=== PATIENT | female | born 1945 | race African-American/Black ===

== ENCOUNTER 2020-11-02 09:02 | Outpatient (CLI) | payer MEDICARE, OTHER, SELFPAY ==
--- NOTE | ~2020-11-02 | MM_ITS ---
EXAMINATION: MM screening [facility] BI w julien HISTORY: Screening TECHNIQUE: Craniocaudal and mediolateral oblique 3-D tomosynthesis images were obtained and synthetic 2-D images were generated. CAD analysis was submitted and interpreted. COMPARISON: Comparison to multiple prior studies sequentially, with oldest reviewed study dated 02/05. BREAST PARENCHYMAL COMPOSITION: There are scattered areas of fibroglandular density. FINDINGS: There is no evidence of suspicious mass, calcification, or architectural distortion to sugg est malignancy in either breast. There has been no suspicious interval change. IMPRESSION: 1. No mammographic evidence of malignancy. 2. Recommend routine screening mammography in one year. BI-RADS Category 1: Negative Reviewed, dictated and finalized at location A.
--- NOTE | ~2020-11-02 | DEXA_ITS ---
Bone Density Report Name: Amber Doshi Age: 75 Sex: Female Ethnicity: Black Date of : 1945 Indication: postmenopausal; height loss; Referring Provider: Michaela De Luna Study: Bone densitometry was performed. Exam Date: November 02, 2020 Accession number: [id number] Bone Density: Region BMD T-score Z-score Classification AP Spine (L1-L4) 1.152 1.0 2.8 Normal World Health Organization criteria for BMD impression classify patients as: Normal (T-score at or above -1.0), Osteopenia (T-score between -1.0 and -2.5), or Osteoporosis (T-score at or below -2.5). Previous Exams: Region Exam Age BMD T-score BMD Change BMD Change Date g/cm2 vs Baseline vs Previous AP Spine(L1-L4) 11/02/2020 75 1.152 1.0 -0.095(-7.6%)# -0.010(-0.9%) 08/15/2018 73 1.162 1.0 -0.084(-6.8%)# -0.162(-12.2%) 02/23/2011 66 1.323 2.5 0.077(6.2%)* 0.068(5.4%)* 12/22/2006 61 1.256 1.9 0.010(0.8%) 0.010(0.8%) 07/11/2003 58 1.246 1.8 *Denotes significance at 95% confidence level, LSC for AP Spine = 0.022 g/cm2 Clinical Information Provided by Patient: Patient maximum height was 65.5 Menopause Age: 46 No regular weight bearing exercise Onset of menses at age 11 Number of children 4 Impression: The patient has normal bone mass. No significant bone loss was observed. Discussion: LOW RISK OF FRACTURE; BONE DENSITY IS WELL ABOVE THE MINIMUM DESIRABLE LEVEL AND ABOVE AVERAGE FOR AGE AND SEX AT ALL SKELETAL SITES TESTED. This person's bone density is above expected limits for age and sex. This is rarely clinically significant, but should be pursued if there are significant musculoskeletal complaints. The patient should follow a healthful lifestyle (good nutrition with adequate calcium and vitamin D, and appropriate weight-bearing exercise). Follow-Up: Consider repeating this study in 5 years or sooner if there is some new clinical indication. Reported by: ANDREW on 11/02/2020 9:30:00 AM. Reviewed, dictated and finalized at location ANicky [facility]
== END 2020-11-02 09:03 | disposition home or self-care (01) ==
LOC: ANHIMG 09:05
PROVIDERS: PCP Family Medicine; Visit Provider Physician Assistant
DX: Z78.0 Asymptomatic menopausal state (principal); Z12.31 Encounter for screening mammogram for malignant neoplasm of breast
CPT/HCPCS: 77063; 77067; 77080

== ENCOUNTER 2023-04-04 11:04 | Emergency (ER) | payer MEDICARE, OTHER, SELFPAY ==
--- NOTE | ~2023-04-04 | XR_ITS ---
EXAMINATION: [id number] DATE: 04/04/2023 12:09 INDICATION: Left rib pain. TECHNIQUE: A frontal view of the chest and 2 views on 3 radiographs of the left ribs were obtained. COMPARISON: Chest 2 views 11/08/2016 FINDINGS: There is no pneumonia, pleural effusion, or pneumothorax. The heart size is normal. IMPRESSION: 1. No rib fracture. Reviewed, dictated and finalized at location A. ENTER HELPER IMPRESSION: 1. No rib fracture.
[2023-04-04 11:10] VITALS: BP 169/85; PULSE 65; RESP 16; TEMP 36.5; O2SAT 100
--- NOTE | 2023-04-04 11:57 | ED.GENADULT ---
HPI - General Adult General Chief complaint: Back Pain/Injury Stated complaint: BACK/NECK/SHOULDER PAIN Time Seen by Provider: 04/04/23 11:48 Source: patient and RN notes reviewed Mode of arrival: ambulatory Limitations: no limitations History of Present Illness HPI narrative: Patient presents today complaining of left lateral and posterior rib pain, and left neck/shoulder pain x1 week. Denies injury or trauma. She has been taking Tylenol using ice, heat, and Aspercreme without relief. Prior to onset of symptoms, patient had been lifting heavy groceries and objects at home. Denies any urinary symptoms to include dysuria, hematuria, urgency, frequency. No history of kidney stones. No shortness of breath or chest pain. Currently rates her pain 5/10 with occasional sharp pains of 10/10. Related Data Home Medications Medication Instructions Recorded Confirmed loperamide 2 mg capsule (Imodium 2 mg PO Q6H PRN Diarrhea 11/23/22 04/04/23 A-D) Allergies Allergy/AdvReac Type Severity Reaction Status Date / Time bacitracin Allergy Unknown RED AND Verified 04/04/23 11:31 RAW- MAKES WOUND WORSE. neomycin Allergy Unknown RED AND Verified 04/04/23 11:31 RAW- MAKES WOUND WORSE. polymyxin B Allergy Unknown RED AND Verified 04/04/23 11:31 RAW- MAKES WOUND WORSE. Review of Systems Review of Systems: CONSTITUTIONAL: Denies body aches, fever, chills, or sweats. EYES: Denies visual changes, redness, or discharge. ENT: Denies rhinorrhea, congestion, sore throat, or otalgia. CARDIOVASCULAR: Denies chest pain, palpitations, or edema. RESPIRATORY: Denies cough or dyspnea. GASTROINTESTINAL: Denies abdominal pain, nausea, vomiting, or diarrhea. GENITOURINARY: Denies dysuria or hematuria. SKIN: Denies rash, itching, or wounds. MUSCULOSKELETAL: + left rib pain, left neck and shoulder pain NEUROLOGIC: Denies headache, numbness, tingling, or weakness. PSYCH: Denies depression or anxiety. [facility] Past Medical History Medical History Cataract Surgical History Surgical History H/O arthroplasty R&L MARIAH in 2016 H/O colonoscopy (~2009) Family History Family History Mother Family history of cardiovascular disease Acute myocardial infarction Grandparent Family history of malignant neoplasm of stomach Family history of malignant neoplasm Family history of malignant neoplasm of esophagus Sibling Cerebrovascular accident Family history of cardiac disorder Family history of arthritis Father Family history of malignant neoplasm of brain Other Family history of lupus erythematosus Family history of malignant neoplasm of cervix Family history of mental disorder Social History Social History Smoking status: Never smoker Alcohol intake: never Lack of Transportation: No Lack of Food: Never True Current Housing: Decline to Answer Concerned About Future Housing: No Difficulty Paying Gas/Electric Bills: No Difficulty Paying for Meds: No Currently Unemployed: No Education: Don't Know Difficulty w/ Childcare or Family Care: YES Comments At time of signature, I have reviewed and agree with nursing past medical, surgical, social and family history unless otherwise noted. Please see nursing chart for further information. There is no relevant family history pertinent to the presenting complaint Exam Narrative: GENERAL: Well-appearing, well-nourished, and in no acute distress. HEAD: Normocephalic, atraumatic. EYES: EOMI. No redness or drainage. Conjunctivae normal. ENT: Mucous membranes pink and moist. NECK: Normal AROM with increased pain to the left neck area. Mildly tender to the left paraspinal muscles and
== END 2023-04-04 12:33 | disposition home or self-care (01) ==
PROVIDERS: Emergency Provider Nurse Practitioner; PCP Family Medicine
DX: N39.0 Urinary tract infection, site not specified (principal); S46.812A Strain of other muscles, fascia and tendons at shoulder and upper arm level, left arm, initial encounter; X50.0XXA Overexertion from strenuous movement or load, initial encounter
CPT/HCPCS: 71101; 81003; 87086; 87088; 99213; G0463

== ENCOUNTER 2023-07-12 11:30 | Outpatient (CLI) | payer MEDICARE, OTHER, SELFPAY ==
--- NOTE | ~2023-07-12 | XR_ITS ---
AP and lateral views of the right hip Clinical history: Pain Findings: No acute fracture or dislocation is seen. Right hip arthroplasty is in place, without hardw are complication. Soft tissues are unremarkable. Impression: No acute abnormality. Right hip arthroplasty in place. Reviewed, dictated and finalized at location . ST CONSULTANT Impression: No acute abnormality. Right hip arthroplasty in place.
--- NOTE | ~2023-07-12 | XR_ITS ---
Lumbosacral Spine: AP, oblique, and lateral views Clinical History: Pain Findings: The normal lordotic curve is maintained. No fracture. There is minimal grade 1 retrolisthes is of L2 over L3. There is extensive facet arthropathy throughout the lumbar spine. There is moderate degenerative disc narrowing at L5-S1. The sacroiliac joints are normally outlined. Impression: [id number] degenerative spondylosis, as above. Minimal grade 1 retrolisthesis of L2 over L3. Reviewed, dictated and finalized at location M. CISE INSTRUCT Impression: [id number] degenerative spondylosis, as above. Minimal grade 1 retrolisthesis of L2 over L3.
== END 2023-07-12 11:31 ==
PROVIDERS: PCP Family Medicine; Visit Provider Family Medicine
DX: M25.551 Pain in right hip (principal); M47.896 Other spondylosis, lumbar region
CPT/HCPCS: 72110; 73502

== ENCOUNTER 2023-08-28 12:19 | Outpatient (CLI) | payer MEDICARE, OTHER, SELFPAY ==
--- NOTE | ~2023-08-28 | MR_ITS ---
EXAMINATION: MR pelvis wo con DATE: 08/28/2023 14:07 INDICATION: Pelvic and perineal pain. Sclerotic lesion in right ilium. TECHNIQUE: Magnetic resonance imaging (MRI) of the pelvis was performed without intravenous contrast. COMPARISON: Pelvis radiograph 08/21/2023, CT abdomen and pelvis 02/19/2017 FINDINGS: There are bilateral total hip arthroplasties. Right ilium demonstrates heterogeneous sclerosis and co rtical thickening, consistent with Paget disease. No fracture. The gluteus minimus and gluteus medius tendons are normal. There is mild bilateral trochanteric bursitis. The musculature is normal. There is severe spondylosis at L5-S1. IMPRESSION: 1. Severe lower lumbar spondylosis. 2. Bilateral total hip arthroplasties. 3. Paget's disease involving right ilium. Reviewed, dictated and finalized at location E.
== END 2023-08-28 12:20 | disposition home or self-care (01) ==
PROVIDERS: PCP Family Medicine; Visit Provider Orthopaedic Surgery
DX: R10.2 Pelvic and perineal pain (principal); M47.896 Other spondylosis, lumbar region; M88.88 Osteitis deformans of other bones
CPT/HCPCS: 72195

== ENCOUNTER 2024-03-04 14:12 | Outpatient (CLI) | payer MEDICARE, OTHER, SELFPAY ==
--- NOTE | ~2024-03-04 | MM_ITS ---
EXAMINATION: MM screening [facility] BI w julien HISTORY: Screening mammogram TECHNIQUE: Craniocaudal and mediolateral oblique 3-D tomosynthesis images were obtained and synthetic 2-D images were generated. CAD analysis was submitted and interpreted. COMPARISON: 11/02/2020 BREAST PARENCHYMAL COMPOSITION:Not Dense. There are scattered areas of fibroglandular density. FINDINGS: No suspicious mass, calcification, or architectural distortion are identified in either yon ast to suggest malignancy. There has been no suspicious interval change. IMPRESSION: No mammographic evidence of malignancy. Recommend routine screening mammography in one year. BI-RADS Category 1: Negative Reviewed, dictated and finalized at location .
--- NOTE | ~2024-03-04 | DEXA_ITS ---
Bone Density Report Name: FLEX GRIMES Age: 79 Sex: Female Ethnicity: Black Date of : 1945 Indication: postmenopausal; screening for osteoporosis; parental hip fracture; height loss; rheumatoid arthritis; secondary osteoporosis; Referring Provider: LOVELY RUCKER Study: Bone densitometry was performed. Exam Date: March 04, 2024 Accession number: [id number] Bone Density: Region BMD T-score Z-score Classification AP Spine(L1-L4) 1.172 1.1 3.2 Normal World Health Organization criteria for BMD impression classify patients as: Normal (T-score at or above -1.0), Osteopenia (T-score between -1.0 and -2.5), or Osteoporosis (T-score at or below -2.5). Clinical Information Provided by Patient: Parent has had a hip fracture Has rheumatoid arthritis Has secondary osteoporosis Patient maximum height was 65.5 Menopause Age: 46 Does not regularly consume dairy products Drinks caffeinated beverages Onset of menses at age 11 Number of children 4 Impression: The patient has normal bone mass. The patient has risk factors, including: parental hip fracture. Discussion: LOW RISK OF FRACTURE; BONE DENSITY IS WELL ABOVE THE MINIMUM DESIRABLE LEVEL AND ABOVE AVERAGE FOR AGE AND SEX AT ALL SKELETAL SITES TESTED. This person's bone density is above expected limits for age and sex. This is rarely clinically significant, but should be pursued if there are significant musculoskeletal complaints. The patient should follow a healthful lifestyle (good nutrition with adequate calcium and vitamin D, and appropriate weight-bearing exercise). Follow-Up: Consider repeating this study in 5 years or sooner if there is some new clinical indication. Reported by: MARLEEN on 03/04/2024 2:42:00 PM. Reviewed, dictated and finalized at location ANicky [facility]
== END 2024-03-04 14:13 | disposition home or self-care (01) ==
LOC: ANHIMG 14:13
PROVIDERS: PCP Family Medicine; Visit Provider Nurse Practitioner
DX: M85.88 Other specified disorders of bone density and structure, other site (principal); Z12.31 Encounter for screening mammogram for malignant neoplasm of breast
CPT/HCPCS: 77063; 77067; 77080

== ENCOUNTER 2024-09-01 14:38 | Outpatient (CLI) | payer MEDICARE, OTHER, SELFPAY ==
[2024-09-01 14:57] LABS: Kit Draw Collected
--- OUTSIDE RECORDS SUMMARY | 2024-09-01 16:49 | XMS_ITS | Continuity of Care Document ---
Author Organization [facility] Address [address] [place] [address] Phone Care Team Providers Care Manager House Name Role Phone Rody Glover Unavailable Unavailable Advance Directives Directive Yes / No Effective Date File Name No Information Encounters Encounter Description Practice Location Reason(s) For Visit Diagnoses Date Provider Providers Copied on Encounter [facility], [address], [place], [place], [id number], [place] tel:[phone] [facility] No Information [address] , [address], [place], [address], [place]. tel:[phone] Family History Family Member Type Diagnosis Age At Onset No Information Payers Payer name Insurance type Covered republican ID Authoriza tion(s) No Information Social History Type Description Quantity Date Captured Comments Sex Female Smoking Status No Information Chief Complaint And Reason For Visit No Information Reason For Referral Reason For Referral No Information History Of Present Illness Encounter Date Complaint History Of Prese nt Illness No Information Functional Status Date Functional Assessmen t No Information Instructions Date Instruction Additional Infor mation No Information Assessments Type Assessment Date No Information Patient Care Teams Name Effective Dates (start - stop) Status Members No Information
--- OUTSIDE RECORDS SUMMARY | 2024-09-01 16:49 | XMS_ITS | Referral Summary ---
Author Organization [facility] Address [address] [place] [address] Care Team Providers Care Nurse Supervisor Name Role Phone Nathan Barrera MD Unavailable [phone] Archana Loyd DO Primary Care Provider [phone] Allergies No known active allergies Medications gabapentin (NEURONTIN) 100 mg capsule Take 1 capsule (100 mg total) by mouth 3 (three) times a day 08/20/2023 Active Synthroid 88 mcg tablet Take 1 tablet (88 mcg total) by mouth daily 09/02/2023 Active amLODIPine (NORVASC) 5 mg tablet Take 1 tablet (5 mg total) by mouth daily 08/09/2023 Active pravastatin (PRAVACHOL) 20 mg tablet Take 1 tablet (20 mg total) by mouth nightly at bedtime 08/10/2023 Active Active Problems Problem Noted Date Diagnosed Date Cervical spondylosis with myelopathy 09/13/2023 Paget disease of bone 09/13/2023 Polyarthralgia 09/13/2023 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 Never 10/18/2023 Q2: How many drinks containi ng alcohol do you have on a typical day when you are drinking? Patient does not drink Q3: How often do you have si x or more drinks on one occasion? Never 10/18/2023 Personal Safety Answer Date Recorded Getting School Help Needed Not on file 08/30 Comments Unknown Sex and Gender Information Value Date Recorded Sex Assigned at Not on file Legal Sex Female 10:33 AM CDT Gender Identity Not on file Sexual Orientation Not on file Last Filed Vital Signs Vital Sign Reading Time Taken Comments Blood Pressure 175/79 09/20/2023 9:30 AM CDT Pulse 62 09/20/2023 9:30 AM CDT Temperature 36.4 C (97.5 F) 09/20/2023 8:01 AM CDT Respiratory Rate 18 09/20/2023 9:30 AM CDT Oxygen Saturation 100% 09/20/2023 9:30 AM CDT Inhaled Oxygen Concentration - - Weight 73.5 kg (162 lb) 10/14/2023 7:07 AM CDT Height 165.1 cm (5' 5 ) 10/14/2023 7:07 AM CDT Body Mass Index 26.96 10/14/2023 7:07 AM CDT Plan of Treatment Not on file Insurance [employer] [employer] Care Teams Nurse Supervisor Relationship Specialty Start Date End Date Archana Loyd DO [address] [place] [address] [id number] PCP - General Family Medicine 10/18/23 Nathan Barrera MD [address] [place] [address] Referring Physician Orthopedic Surgery 08/31/23
--- OUTSIDE RECORDS SUMMARY | 2024-09-01 16:49 | XMS_ITS | Clinical Summary ---
Author Organization [facility] Address [address] [place] [address] Care Team Providers Care Environmental Engineering Professor Name Role Phone Nathan Barrera MD Unavailable [phone] Archana Loyd DO Primary Care Provider [phone] Allergies No known active allergies Medications gabapentin [...] 024 Neoplasm 09/13/2023 Right hip pain 09/13/2023 Surgical History Surgery Date Site/Laterality Comments TOTAL HIP ARTHROPLASTY 05/07/2016 - 05/06/2017 Bilateral BIOPSY DEEP BONE 09/20/2023 N/A Medical History Medical History Date Comments Osteoarthritis Hypertension Thyroid disease Cancer (HCC) Social History Tobacco Use Types Packs/Day Years [...] on file Sexual Orientation Not on file Obstetrics History Last Filed Vital Signs Vital Sign Reading [...] 10/14/2023 7:07 AM CDT Plan of Treatment Health Maintenance Due Date Last Done Comments Depression Screening 1945 Osteoporosis Screening-Bone Density Scan 1945 DTaP/Tdap/Td Vaccine (1 - Tdap) 1954 Hepatitis B Screening 1961 Zoster Vaccine (1 of 2) 1993 Well Visit 65+ 01/23/2008 Pneumococcal vaccine 65+ (2 of 2 - PCV) 06/28/2018 06/28/2017 Covid-19 Vaccine (6 - 2023-2 5 season) 2024 02/05/2023, 09/05/2021, 03/24/2021, Additional history exists Fall Risk Assessment 09/19/2024 09/20/2023 Influenza Vaccine (Season Ended) 2025 06/04/2023, 01/26/2021, 02/06/2020, Additional history exists Insurance [employer] [place] [employer] Care Teams Environmental Engineering Professor Relationship Specialty Start Date End Date Archana Loyd [address] [place] [address] [place] [address] PCP - General Family Medicine 10/18/23 Nathan Barrera MD [address] [place] [address] Referring Physician Orthopedic Surgery 08/31/23
== END 2024-09-01 14:39 | disposition home or self-care (01) ==
LOC: ANHGOSHLAB 14:39
PROVIDERS: PCP Family Medicine; Visit Provider Family Medicine
DX: M62.838 Other muscle spasm (principal); N18.31 Chronic kidney disease, stage 3a; Z79.899 Other long term (current) drug therapy; R52 Pain, unspecified
CPT/HCPCS: 36415

== ENCOUNTER 2024-09-01 14:57 | Outpatient (CLI) | payer MEDICARE, OTHER, SELFPAY ==
--- NOTE | ~2024-09-01 | XR_ITS ---
Thoracic spine: Clinical Indication: Pain AP and lateral views were performed. No fracture is seen. There is normal alignment of the vertebrae. The is moderate multilevel degenera tive disc narrowing in the upper to mid thoracic spine. Paravertebral soft tissues appear normal. Impression: Multilevel moderate degenerative disc narrowing in the upper to mid thoracic spine. No fracture or tyler blocation. Reviewed, dictated and finalized at location . Impression: Multilevel moderate degenerative disc narrowing in the upper to mid thoracic sp ine. No fracture or sublocation.
--- NOTE | ~2024-09-01 | XR_ITS ---
CHEST RADIOGRAPH, PA AND LATERAL CLINICAL HISTORY: R07.9 - Chest pain, unspecified . COMPARISON: 04/04/2023 TECHNIQUE: PA and lateral views of the chest. FINDINGS The cardiomediastinal silhouette is unremarkable. The lungs are clear. Visualized osseous structures and soft tissues are unremarkable. IMPRESSION: No focal infiltrate or effusion. Reviewed, dictated and finalized at location A.
== END 2024-09-01 14:58 | disposition home or self-care (01) ==
LOC: GOSHIMG 14:58
PROVIDERS: PCP Family Medicine; Visit Provider Family Medicine
DX: R07.9 Chest pain, unspecified (principal); M51.24 Other intervertebral disc displacement, thoracic region
CPT/HCPCS: 71046; 72072